=== PATIENT | female | born 1950 | race Caucasian/White ===

== ENCOUNTER 2019-08-12 09:03 | Outpatient (CLI) | payer MEDICARE, OTHER ==
[2016-11-07 00:13] VITALS: BP 91/49
--- NOTE | 2019-08-24 15:10 | Diagnostic Imaging Report ---
CECE VALADEZ [facility] [id number] [id number] Report Submission Date: Aug 12, 2019 1:40:08 PM CDT Patient Study Name: ASIA RODRIGUES Date: Aug 12, 2019 9:08:00 AM CDT Modality Type: US Gender: F Description: AAA : 48 Institution: [facility] Physician: CECE VALADEZ Exam: Ultrasound of the abdominal aorta. History: Aneurysm. Doppler interrogation and color Doppler imaging of the abdominal aorta is performed. Distal abdominal aortic ectasia measures 2.6 x 2.4 cm in greatest diameter. The remainder of the abdominal aorta is of normal caliber. No surrounding masses or fluid collections are identified. Impression: Ectatic distal abdominal aorta as described above. Electronically signed on Aug 12, 2019 1:40:08 PM CDT by: Shawn LUNA
== END 2019-08-12 09:20 ==
LOC: RAD 09:03
PROVIDERS: ATTEND Family Medicine
DX: Z13.6 Encounter for screening for cardiovascular disorders (principal); F17.200 Nicotine dependence, unspecified, uncomplicated